=== PATIENT | male | born 1970 | race African-American/Black ===

== ENCOUNTER 2021-09-25 11:40 | Emergency (ER) | payer OTHER ==
[~2021-09-25] VITALS: Ht 175.3 cm; Wt 88.0 kg
[2021-09-25 13:03] VITALS: BP 157/100
--- NOTE | 2021-09-25 13:16 | PHYS DOC ---
General Adult EDM: Chief Complaint: DEPRESSION HPI: HPI: 51-year-old male presents with audible hallucinations. The patient has had audible hallucinations on and off for a long time. He has not been consistently taking his medications. The voices have been telling him to hide his medications from his girlfriend. He then forgets where he puts them. He does not believe he had any medication since Niki. He presents today because the audible destinations are getting stronger and they are telling him to break into a house that is not his. He denies any suicidal or homicidal ideation. He used to go to the [facility] but has not been there in a few years. He was incarcerated. He denies fever or chills. He has no other medical complaints this time. Review of Systems: Review of Systems: Constitutional: Denies fever or chills Eyes: Denies change in visual acuity HENT: Denies nasal congestion or sore throat Respiratory: Denies cough or shortness of breath Cardiovascular: Denies chest pain or edema GI: Denies abdominal pain, nausea, vomiting, bloody stools or diarrhea : Denies dysuria Musculoskeletal: Denies back pain or joint pain Integument: Denies rash Neurologic: Denies headache, focal weakness or sensory changes Endocrine: Denies polyuria or polydipsia Lymphatic: Denies swollen glands Psychiatric: Audible hallucinations, anxiety Physical Exam: PE: Constitutional: Well developed, well nourished, no acute distress, non-toxic appearance. [] HENT: Normocephalic, atraumatic, bilateral external ears normal, oropharynx moist, no oral exudates, nose normal. [] Eyes: PERRLA, EOMI, conjunctiva normal, no discharge. [] Neck: Normal range of motion, no tenderness, supple, no stridor. [] Cardiovascular: Heart rate regular rhythm, no murmur [] Lungs & Thorax: Bilateral breath sounds clear to auscultation [] Abdomen: Bowel sounds normal, soft, no tenderness, no masses, no pulsatile masses. [] Skin: Warm, dry, no erythema, no rash. [] Back: No tenderness, no CVA tenderness. [] Extremities: No tenderness, no cyanosis, no clubbing, ROM intact, no edema. [] Neurologic: Stutter. Alert and oriented X 3, normal motor function, normal sensory function, no focal deficits noted. [] Psychologic: Affect tearful, judgement normal, mood anxious. [] EKG: EKG: [] Radiology/Procedures: Radiology/Procedures: [] Heart Score: C/O Chest Pain: N/A Risk Factors: Risk Factors: DM, Current or recent (<one month) smoker, HTN, HLP, family history of CAD, obesity. Risk Scores: Score 0 - 3: 2.5% MACE over next 6 weeks - Discharge Home Score 4 - 6: 20.3% MACE over next 6 weeks - Admit for Clinical Observation Score 7 - 10: 72.7% MACE over next 6 weeks - Early Invasive Strategies Course & Med Decision Making: Course & Med Decision Making Pertinent Labs and Imaging studies reviewed. (See chart for details) The patient's labs are unremarkable. He will be evaluated by behavioral health team. The behavioral health team has seen the patient and determined he can be discharged with safety plan. He is stable for discharge at this time. [] Peter Disclaimer: Peter Disclaimer: This electronic medical record was generated, in whole or in part, using a voice recognition dictation system. Departure Departure: Impression: Primary Impression: Auditory hallucination Additional Impression: Depression Disposition: HOME / SELF CARE / HOMELESS Condition: STABLE Referrals: PCP,SHANA (PCP) NIHARIKA KING DO Sep 25, 2021 13:16
[2021-09-25 14:26] LABS: BASO % 1 % (0-3); EOS # 0.2 x10^3/uL (0.0-0.7); EOS % 3 % (0-3); HEMATOCRIT 50.1 % (39.0-53.0); HEMOGLOBIN 16.7 g/dL (13.0-17.5); LYMPH # 1.9 x10^3/uL (1.0-4.8); LYMPH % 28 % (24-48); MEAN CORPUSCULAR HEMOGLOBIN 29 pg (25-35); MEAN CORPUSCULAR HGB CONC 33 g/dL (31-37); MEAN CORPUSCULAR VOLUME 87 fL (79-100); MONO # 0.8 x10^3/uL (0.0-1.1); MONO % 12 % (0-9); NEUT # 3.8 x10^3uL (1.8-7.7); NEUT % 57 % (31-73); PLATELET COUNT 233 x10^3/uL (140-400); RED CELL DISTRIBUTION WIDTH 13.9 % (11.5-14.5); WHITE BLOOD COUNT 6.6 x10^3/uL (4.0-11.0)
[2021-09-25 14:38] LABS: CALCIUM 8.6 mg/dL (8.5-10.1); CREATININE 1.1 mg/dL (0.7-1.3); GFR 86.1; POTASSIUM 3.7 mmol/L (3.5-5.1)
[2021-09-25 14:42] LABS: ALBUMIN 3.8 g/dL (3.4-5.0); TOTAL BILIRUBIN 0.3 mg/dL (0.2-1.0); TOTAL PROTEIN 7.7 g/dL (6.4-8.2)
== END 2021-09-25 16:06 | disposition left against medical advice (07) ==
LOC: ER 11:40
DX: F32.9 Major depressive disorder, single episode, unspecified (principal); R44.0 Auditory hallucinations; Z20.822 Contact with and (suspected) exposure to COVID-19
CPT/HCPCS: 80053; 85025; 87426; 99283; C9803; U0003

== ENCOUNTER 2021-12-20 08:51 | Emergency (ER) | payer OTHER ==
[~2021-12-20] VITALS: Ht 170.2 cm; Wt 88.0 kg
[2021-12-20 09:34] VITALS: BP 140/95
[2021-12-20] MEDS ORDERED: MORPHINE IR 15 MG TABLET PO STA (09:35)
[2021-12-20] MEDS ORDERED: AMOXICILLIN/K CLAV 875/125MG TABLET. PO ONE (09:45)
[2021-12-20] MEDS ORDERED: IBUPROFEN 600 MG TABLET. PO ONE (09:45)
[2021-12-20] MEDS ORDERED: MORP-62 PO (09:53)
[2021-12-20] MEDS ORDERED: AMOX1TAB11 PO (09:53)
[2021-12-20] MEDS ORDERED: IBUP-571 PO (09:53)
--- NOTE | 2021-12-20 09:57 | PHYS DOC ---
Past History Past Surgical History: No Surgical History Alcohol Use: Occasionally Adult General Chief Complaint Chief Complaint: DENTAL PROBLEM HPI HPI 51-year-old male with a history of bipolar disorder and asthma presents for evaluation of dental discomfort in association with a fractured necrotic left maxillary premolar. The tooth broke a couple of weeks ago and pain has been particularly severe over the past few days. No fevers, nausea or vomiting, trismus, pain or swelling to the floor of the mouth or elevation of the tongue, sore throat, trouble with secretions, shortness of breath. Patient is alert and pleasantly and appropriately interactive and in no acute distress with appropriate vital signs. Has not seen a dentist. Review of Systems Review of Systems A 12 point review of systems was completed and was negative except where noted in HPI above. Current Medications Current Medications Current Medications Medications (Trade) Dose Ordered Sig/Javier Start Time Stop Time Status Last Admin Dose Admin Amoxicillin/ Clavulanate Potassium (Augmentin 875/ 125mg) 1 tab 1X ONCE 12/20/21 09:45 12/20/21 09:46 UNV Ibuprofen (Motrin) 800 mg 1X ONCE 12/20/21 09:45 12/20/21 09:46 UNV Morphine Sulfate (Morphine Ir) 15 mg 1X STAT 12/20/21 09:35 12/20/21 09:36 UNV Allergies Allergies Allergies Coded Allergies Type Severity Reaction Last Updated Verified No Known Drug Allergies 12/20/21 No Physical Exam Physical Exam 51-year-old male appearing nontoxic and in no acute distress. Head is normocephalic and atraumatic. Neck is supple and nontender. Oropharynx is moist. Multiple dental caries and a fractured left maxillary premolar with mild associated localized gingival erythema without fluctuance suggestive of abscess. No posterior oropharyngeal erythema, tonsillar exudate or swelling or uvular deviation. Patient is speaking comfortably in full sentences and normal tone of voice and tolerating secretions very well. No submental swelling. Lungs clear to auscultation at all stations. There is a normal S1 and S2 without rubs or gallops and capillary refill is appropriate, less than 2 seconds globally. Abdomen is soft, nontender nondistended. Skin is warm and dry without cyanosis, clubbing or edema. Psychiatrically, the patient demonstrates appropriate mood and affect and is alert. Current Patient Data Vital Signs Vital Signs Date Time Temp Pulse Resp B/P (MAP) Pulse Ox O2 Delivery O2 Flow Rate FiO2 12/20/21 09:34 97.9 87 18 140/95 (110) 100 Room Air EKG EKG [] Radiology/Procedures Radiology/Procedures [] Heart Score C/O Chest Pain: No Risk Factors: Risk Factors: DM, Current or recent (<one month) smoker, HTN, HLP, family history of CAD, obesity. Risk Scores: Risk Factors: DM, Current or recent (<one month) smoker, HTN, HLP, family history of CAD, obesity. Course & Med Decision Making Course & Med Decision Making No red flags for dental pain today. Patient is advised in no uncertain terms that he needs to follow-up closely with a dentist and that symptoms will not get all the way better until he sees one. Will provide a list of dental resources. Will discharge with anti-inflammatory medication, medication for breakthrough discomfort and an antibiotic course. Patient understands that if he feels worse instead of better or develops other new symptoms of concern that he will need to return to the emergency department immediately for reevaluation. All questions are answered. Dragon Disclaimer Dragon Disclaimer This electronic medical record was generated, in whole or in part, using a voice recognition dictation system. Departure Departure: Impression: Primary Impression: Dental infection Disposition: HOME / SELF CARE / HOMELESS Condition: IMPROVED Patient Instructions: Dental Caries Additional Instructions: Follow-up with a dentist in the next 1 to 2 days for reevaluation of your symptoms and a discussion of next best steps in care. As we discussed at length, your symptoms will not get all the way better until you see the dentist. Please refer to the dental information we have provided and select a dentist to see as soon as possible. In the meantime, take a 600 mg ibuprofen every 6 hours as needed for pain. Take with food to prevent stomach upset. For pain not well controlled with ibuprofen you may take an oral morphine pill every 6 hours as needed. Be careful because oral morphine can make you sleepy so do not drive or work or operate machinery while taking it. Take the Augmentin antibiotic twice a day for the next 10 days to treat your dental infection. Return to the emergency department right away for worsening symptoms of any kind or with any other new symptoms of concern. Scripts Amoxicillin/Potassium Clav (AMOX TR-K CLV 875-125 MG TAB) 1 Each Tablet 1 TAB PO BID for dental infection for 10 Days, #20 TAB Prov: NIKHIL SOLOMON MD 12/20/21 Morphine Sulfate (MORPHINE SULFATE) 15 Mg Tablet 1 TAB PO QID PRN for SEVERE PAIN 7-10, #7 TAB Prov: NIKHIL SOLOMON MD 12/20/21 Ibuprofen (Ibu) 600 Mg Tablet 1 TAB PO Q6HRS PRN for PAIN for 7 Days, #28 TAB 0 Refills Prov: NIKHIL SOLOMON MD 12/20/21 NIKHIL SOLOMON MD Dec 20, 2021 09:57
== END 2021-12-20 10:07 | disposition home or self-care (01) ==
LOC: ER 08:51
DX: K04.7 Periapical abscess without sinus (principal); K02.9 Dental caries, unspecified; F31.9 Bipolar disorder, unspecified; J45.909 Unspecified asthma, uncomplicated
CPT/HCPCS: 99284

== ENCOUNTER 2022-02-03 16:20 | Emergency (ER) | payer OTHER ==
[~2022-02-03] VITALS: Ht 170.2 cm; Wt 88.0 kg
[~2022-02-03 16:20] MED LIST: AMOX1TAB11 PO; IBUP-571 PO; MORP-62 PO
[2022-02-03] MEDS ORDERED: NALOXONE 2 MG/2 ML DISP.SYRIN. ONE (16:35)
[2022-02-03] MEDS ORDERED: NALOXONE 2 MG/2 ML DISP.SYRIN. IV ONE ×3 (16:45→19:45)
[2022-02-03] MEDS ORDERED: NALOXONE 0.4 MG/ML VIAL. IV ONE (16:45)
--- NOTE | 2022-02-03 16:57 | PHYS DOC ---
Past History Past Surgical History: No Surgical History (ERIN WOODY MD) Alcohol Use: Rarely (ERIN WOODY MD) General Adult EDM: Chief Complaint: OVERDOSE HPI: HPI: Patient is a 51-year-old male brought in by EMS found unresponsive by a neighbor. Patient was withdrawing from pain. Neighbor called EMS after finding him sitting in his chair just inside his house. There is no signs of trauma or paraphernalia. He was at the door was open when they went in. Vital signs stable per EMS, and no meds given prior to ED arrival. Blood glucose 153 (ERIN WOODY MD) Review of Systems: Review of Systems: All other systems within normal limits except for as noted in the HPI (ERIN WOODY MD) Current Medications: Current Meds: Current Medications Medications (Trade) Dose Ordered Sig/Javier Start Time Stop Time Status Last Admin Dose Admin Naloxone HCl (Narcan) 2 mg 1X ONCE 02/03/22 16:45 02/03/22 16:46 DC Sodium Chloride 1,000 ml @ 1,000 mls/hr 1X ONCE 02/03/22 17:00 02/03/22 17:59 UNV (ERIN WOODY MD) Allergies: Allergies: Allergies Coded Allergies Type Severity Reaction Last Updated Verified No Known Drug Allergies 12/20/21 No (ERIN WOODY MD) Physical Exam: PE: Constitutional: Well developed, well nourished, no acute distress, non-toxic appearance. No signs of trauma HENT: Normocephalic, atraumatic, bilateral external ears normal, nose normal. [] Eyes: Pupils pinpoint conjunctiva normal, no discharge. [] Neck: No rigidity, supple, no stridor. [] Cardiovascular: Regular rate and rhythm, brisk cap refill [] Lungs & Thorax: Non labored symmetric respirations, no tachypnea or respiratory distress [] Abdomen: Soft, nondistended. Skin: Warm, dry, no erythema, no rash. [] Back: Unremarkable Extremities: No deformities, , no lower extremity edema [] Neurologic: Responsive to painful stimuli, moving all extremities, GCS 10 Psychologic: Unable to assess (ERIN WOODY MD) Current Patient Data: Vital Signs: Vital Signs Date Time Temp Pulse Resp B/P (MAP) Pulse Ox O2 Delivery O2 Flow Rate FiO2 02/03/22 16:46 97.6 92 14 152/85 (107) 99 Room Air (ERIN WOODY MD) EKG: EKG: [] (ERIN WOODY MD) Radiology/Procedures: Radiology/Procedures: [][address] [id number] IMAGING REPORT Signed PATIENT: LAZ GARCIA ACCOUNT: [id number] : 1970 LOCATION: ER AGE: 51 SEX: M EXAM STATUS: REG ER ORD. PHYSICIAN: ERIN WOODY MD REASON: ams. PROCEDURE: CT HEAD WO CONTRAST EXAMINATION: CT HEAD/BRAIN WO CLINICAL HISTORY: Altered mental status. TECHNIQUE: Serial axial images without IV contrast were obtained from the vertex to the foramen magnum. CT Dose Reduction Employed: One or more of the following individualized dose reduction techniques were utilized for this examination: 1. Automated exposure control 2. Adjustment of the mA and/or kV according to patient size 3. Use of iterative reconstruction technique. COMPARISON: None FINDINGS: Acute Change: No evidence of an acute infarct or other acute parenchymal process. Hemorrhage: No evidence of acute intracranial hemorrhage. Mass Lesion/Mass Effect: No evidence of intracranial mass or extraaxial fluid collection. No significant mass effect. Parenchyma: Parenchyma within normal limits for age. Ventricles: Ventricles within normal limits for age. Paranasal Sinuses and Skull Base: No significant paranasal sinus disease. Nonspecific 1 cm sclerotic focus in the left orbital roof, visualized skull base and otherwise unremarkable. IMPRESSION: No evidence of acute intracranial abnormality. Nonspecific 1 cm sclerotic focus in the left orbital roof. Nonemergent MRI might be able to further characterize. Electronically signed by: Mt Ivy DO (02/03/2022 5:23 PM) [facility] DICTATED AND SIGNED BY: MT IVY DO DATE: 02/03/221718 CC: ERIN WOODY MD; PCP,NO ~ (ERIN WOODY MD) Heart Score: C/O Chest Pain: N/A Risk Factors: Risk Factors: DM, Current or recent (<one month) smoker, HTN, HLP, family history of CAD, obesity. Risk Scores: Score 0 - 3: 2.5% MACE over next 6 weeks - Discharge Home Score 4 - 6: 20.3% MACE over next 6 weeks - Admit for Clinical Observation Score 7 - 10: 72.7% MACE over next 6 weeks - Early Invasive Strategies (ERIN WOODY MD) Course & Med Decision Making: Course & Med Decision Making Pertinent Labs and Imaging studies reviewed. (See chart for details) Patient waking up with nebulized Narcan. Pending the rest of his labs and reevaluation. Care transitioned at shift change [] (ERIN WOODY MD) Course & Med Decision Making I took over the patient in signout. His labs are unremarkable. His vitals are always within normal limits. The patient's drug screen was positive for amphetamine and marijuana. I suspect it was likely another synthetic substance. The patient was given additional 2 of Narcan in the ER without much effect. After about a 6-hour nap, the patient was able to be aroused. He is ready to go home. He is stable for discharge at this time. (NIHARIKA KING DO) Dragon Disclaimer: Dragon Disclaimer: This electronic medical record was generated, in whole or in part, using a voice recognition dictation system. (ERIN WOODY MD) Departure Departure: Impression: Primary Impression: Drug overdose Additional Impressions: Methamphetamine use Marijuana use Disposition: 01 HOME / SELF CARE / HOMELESS Condition: STABLE Referrals: PCP,SHANA (PCP) Patient Instructions: Overdose, Adult ERIN WOODY MD February 03, 2022 16:57 NIHARIKA KING DO February 03, 2022 23:45
[2022-02-03] MEDS ORDERED: IV NORMAL SALINE 1,000ML 1,000 ML IV ONE (17:00)
--- NOTE | 2022-02-03 17:26 | RAD ---
EXAMINATION: CT HEAD/BRAIN WO CLINICAL HISTORY: Altered mental status. TECHNIQUE: Serial axial images without IV contrast were obtained from the vertex to the foramen magnu m. CT Dose Reduction Employed: One or more of the following individualized dose reduction techniques radha e utilized for this examination: 1. Automated exposure control 2. Adjustment of the mA and/or kV ac cording to patient size 3. Use of iterative reconstruction technique. COMPARISON: None FINDINGS: Acute Change: No evidence of an acute infarct or other acute parenchymal process. Hemorrhage: No evidence of acute intracranial hemorrhage. Mass Lesion/Mass Effect: No evidence of intracranial mass or extraaxial fluid collection. No signific ant mass effect. Parenchyma: Parenchyma within normal limits for age. Ventricles: Ventricles within normal limits for age. Paranasal Sinuses and Skull Base: No significant paranasal sinus disease. Nonspecific 1 cm sclerotic focus in the left orbital roof, visualized skull base and otherwise unremarkable. IMPRESSION: No evidence of acute intracranial abnormality. Nonspecific 1 cm sclerotic focus in the left orbital roof. Nonemergent MRI might be able to further c haracterize. Electronically signed by: Mt Parekh DO (02/03/2022 5:23 PM) [facility]
[2022-02-03 17:27] LABS: CREATININE 1.2 mg/dL (0.7-1.3); GFR 77.9; POTASSIUM 4.1 mmol/L (3.5-5.1)
[2022-02-03 17:35] LABS: HEMATOCRIT 46.1 % (39.0-53.0); HEMOGLOBIN 15.4 g/dL (13.0-17.5); MEAN CORPUSCULAR HEMOGLOBIN 28 pg (25-35); MEAN CORPUSCULAR HGB CONC 33 g/dL (31-37); MEAN CORPUSCULAR VOLUME 85 fL (79-100); PLATELET COUNT 202 x10^3/uL (140-400); RED BLOOD COUNT 5.42 x10^6/uL (4.30-5.70); RED CELL DISTRIBUTION WIDTH 14.2 % (11.5-14.5); WHITE BLOOD COUNT 6.2 x10^3/uL (4.0-11.0)
[2022-02-03 17:36] LABS: BASO % 0 % (0-3); EOS # 0.1 x10^3/uL (0.0-0.7); EOS % 2 % (0-3); LYMPH # 1.1 x10^3/uL (1.0-4.8); LYMPH % 17 % (24-48); MONO # 0.8 x10^3/uL (0.0-1.1); MONO % 13 % (0-9); NEUT # 4.2 x10^3uL (1.8-7.7); NEUT % 68 % (31-73)
[2022-02-03 17:42] LABS: ALBUMIN 3.2 g/dL (3.4-5.0); ALBUMIN/GLOBULIN RATIO 1.1 (1.0-1.7); PHOSPHORUS 3.2 mg/dL (2.6-4.7); TOTAL BILIRUBIN 0.4 mg/dL (0.2-1.0); TOTAL PROTEIN 6.2 g/dL (6.4-8.2)
[2022-02-03 19:31] LABS: BARBITURATES NEG (NEG); BENZODIAZEPINES NEG (NEG); CANNABINOIDS POS (NEG); COCAINE NEG (NEG); METHADONE NEG (NEG); OPIATES NEG (NEG); PHENCYCLIDINE NEG (NEG)
[2022-02-03 19:34] LABS: AMPHETAMINE/METHAMPHETAMINE POS (NEG)
[2022-02-03 19:39] LABS: CLARITY,URINE CLEAR; COLOR,URINE YELLOW; GLUCOSE,URINE NEG (NEG); NITRITE,URINE NEG (NEG); RBC,URINE 0 /HPF (0-2)
[2022-02-03 19:40] LABS: BACTERIA,URINE 0 /HPF (0-FEW); SQUAMOUS EPITHELIAL CELL,UR OCC /LPF
[2022-02-03 21:40] VITALS: BP 157/79
== END 2022-02-04 00:47 | disposition home or self-care (01) ==
LOC: ER 16:20
DX: T50.901A Poisoning by unspecified drugs, medicaments and biological substances, accidental (unintentional), initial encounter (principal); F15.90 Other stimulant use, unspecified, uncomplicated; F12.90 Cannabis use, unspecified, uncomplicated; Y92.89 Other specified places as the place of occurrence of the external cause
CPT/HCPCS: 36415; 70450; 80053; 80307; 81001; 82550; 83605; 83690; 83735; 83880; 84100; 84484; 85025; 87086; 96361; 96374; 96376; 99285; G0480; J2310; J7030